=== PATIENT | male | born 1980 | race African-American/Black ===

== ENCOUNTER 2024-08-23 15:29 | Emergency (ER) | payer SELFPAY ==
[2024-08-23 15:47] VITALS: BP 96/60; PULSE 60; RESP 18; TEMP 98; BMI 26.5
[2024-08-23] MEDS ORDERED: IBUPROFEN 400 MG TABLET (FP) PO ONE (16:02)
[2024-08-23] MEDS: IBUPROFEN 400 MG TABLET (FP) PO ONE (16:04)
== END 2024-08-23 16:48 | disposition home or self-care (01) ==
LOC: JERFT 15:29
DX: M25.552 Pain in left hip (principal)
CPT/HCPCS: 73502-TC-RT-FY; 99283-25